=== PATIENT | female | born 1930 | race Caucasian/White ===

== ENCOUNTER → 2016-05-29 | Day surgery (SDC) | payer MEDICARE ==
[~2016-05-29] MED LIST: ACETAMINOPHEN PO; ALDACTONE25 MG PO; BAYER CHEWABLE81 MG PO; BENICAR PO; COQ-1010 MG PO; COREG6.25 MG PO; KEPPRA500 M2 PO; MULTI VITAMIN1 EACH PO; PRAVACHOL80 MG PO
--- NOTE | ~2016-05-29 | OR ---
Unit #: [id number] #: [id number] Patient: JORGITO ABARCA [id number] [address] [place], [place] [address] [id number] MR#: [id number] NAME: JORGITO ABARCA. ROOM: Date of Procedure: 05/29/2016 Admission Date: 05/29/2016 Surgeon: Chris Solis M.D. : 1930 Attending Physician: Mendez Solis Primary Care Physician: Vinh Merritt M.D. [facility]ENTER OPERATIVE NOTE PROCEDURE PERFORMED Lumbar epidural steroid injection under x-ray guided needle placement. PREOPERATIVE DIAGNOSES 1. Acute lumbar radiculitis. 2. Spinal stenosis, lumbosacral spine. 3. Herniated disk, L3-L4. 4. Herniated disk, L5-S1. 5. Degenerative joint disease, lumbosacral spine. 6. Degenerative disk disease, lumbosacral spine. INDICATIONS FOR PROCEDURE The patient presents today with longstanding history of chronic lumbar radicular pain secondary to her underlying degenerative processes. She is generally fairly well managed with ongoing continuous conservative measures. However, she does occasionally experience exacerbations, which to date will break through her ongoing conservative measures and have only responded to interventional pain management procedures. Her usual amount relief is 80% for approximately 8 to 10 weeks. She presents today complaining of just such an exacerbation, which is advancing in a crescendo pattern and has reached the point that is negatively impacting her activities of daily living. After discussing risks and benefits of proceeding today with an L3-L4 and L5-S1 dual needle access technique, the patient agreed this would be the appropriate course of action. DESCRIPTION OF PROCEDURE She was then taken to the operating room, where she was prepped and draped in a sterile manner. Standard monitors were applied. She refused all forms of sedation and lumbar epidural space was accessed at the L5-S1 and L3-L4 levels using loss of resistance technique and x-ray guidance. At the L5-S1 level, there was good superior and inferior flow of the injected dye. At the L3-L4 level, all the dye went superiorly. This did provide us good coverage of the desired areas. Following successful needle placement confirmation which required an x-ray time of 8 seconds, the patient received an injectate containing 4 mL normal saline and 40 mg of methylprednisolone at each level for a total injectate volume of 8 mL normal saline and 80 mg of methylprednisolone. She tolerated this procedure well. She was discharged home with followup instructions, which include an offer to return to this clinic as early as 09/04/2016 if we could be of further service to her. Dictated by... Unit #: [id number] #: [id number] Patient: JORGITO ABARCA Chris Solis M.D. JRG/cooper TD: 05/30/2016 02:37 JOB #: [id number] CC: Rosas Paniagua M.D. SUR[facility] CENTER OPERATIVE NOTE Page 1 of 1 X Mendez Solis MD X PROCEDURE OPERATIVE NOTE
== END | disposition home or self-care (01) ==
LOC: CCSC 09:05
DX: G89.29 Other chronic pain (principal); M51.17 Intervertebral disc disorders with radiculopathy, lumbosacral region; M48.07 Spinal stenosis, lumbosacral region
CPT/HCPCS: J1040; J2250